=== PATIENT | female | born 1995 | race African-American/Black ===

== ENCOUNTER 2019-07-08 15:35 | Emergency (ER) | payer MEDICAID ==
[~2019-07-08] VITALS: Ht 170.2 cm; Wt 59.0 kg
[2019-07-08 15:45] VITALS: BP 113/59
--- NOTE | 2019-07-08 15:47 | NUR ---
ER Nurse Note: Pt walked in c/o abd pain with n/v since 07/07 PM. Pt stated she was drinking yesterday night, started vomiting ever since. Pt stated "I thought it was just a hangover but vomiting has not stopped". Pt stated emesis is clear now. Pt denies drinking more than her normal amount, denies taking drugs, denies being .
--- NOTE | 2019-07-08 15:52 | Emergency Room Report ---
History of Present Illness General Chief Complaint: Abdominal Pain Source: Patient Present Illness HPI 23-year-old female presents to the emergency department complaining of 10 out of 10 severity epigastric abdominal pain with associated vomiting since this a.m. Patient reports that she has vomited approximately 5 times she denies blood in the vomit and she denies constipation, diarrhea, hematochezia or black tarry stools. Patient reports she was drinking last night and she thought she had just a hangover however she continues to have nausea and vomiting. Patient states she is unable to keep anything down. She reports that her vomitus is the consistency of bile. She denies fevers, chills or suspicion of she states that she is currently on her menstrual cycle. She denies nominal tenderness. Except for during episodes of vomiting. She denies drug use. Allergies: Coded Allergies: No Known Allergies (Unverified , 07/08/19) Patient History Past Medical History: see triage record Past Surgical History: none Pertinent Family History: none Last Menstrual Period: 07/08/19 Now: No Immunizations: UTD Reviewed Nursing Documentation: PMH: Agreed; PSxH: Agreed Nursing Documentation-PMH Past Medical History: No Stated History Review of Systems All Other Systems: negative except mentioned in HPI Physical Exam Vital Signs Date Time Temp Pulse Resp B/P (MAP) Pulse Ox O2 Delivery O2 Flow Rate FiO2 07/08/19 15:38 98.4 62 19 113/59 (77) 97 Room Air Sp02 EP Interpretation: reviewed, normal General Appearance: no apparent distress, alert, GCS 15, non-toxic Head: normocephalic, atraumatic Eyes: bilateral eye normal inspection, bilateral eye PERRL ENT: hearing grossly normal, normal voice Neck: full range of motion Respiratory: lungs clear, normal breath sounds, speaking full sentences Cardiovascular #1: regular rate, rhythm Gastrointestinal: normal bowel sounds, soft, non-distended, no guarding, tenderness - epigastric Genitourinary: normal inspection, no CVA tenderness Musculoskeletal: gait/station normal, normal range of motion, non-tender Neurologic: alert, oriented x3, responsive, motor strength/tone normal, sensory intact, normal gait, speech normal, grossly normal Psychiatric: judgement/insight normal Medical Decision Making PA Attestation Dr. Puckett is my supervising Physician whom patient management has been discussed with. Diagnostic Impression: Primary Impression: Vomiting Qualified Codes: R11.10 - Vomiting, unspecified Additional Impression: Abdominal pain Qualified Codes: R10.13 - Epigastric pain ER Course 23-year-old female presents to the emergency department complaining of 10 out of 10 severity epigastric abdominal pain with associated vomiting since this a.m. Patient reports that she has vomited approximately 5 times she denies blood in the vomit and she denies constipation, diarrhea, hematochezia or black tarry stools. Patient reports she was drinking last night and she thought she had just a hangover however she continues to have nausea and vomiting. Patient states she is unable to keep anything down. She reports that her vomitus is the consistency of bile. She denies fevers, chills or suspicion of she states that she is currently on her menstrual cycle. She denies nominal tenderness. Except for during episodes of vomiting. She denies drug use. Ddx considered but are not limited to GE, colitis, acute appendicitis, SBO, H.pylori, Gastritis, PNA, pericarditis just to name a few. Vital signs: pt. is afebrile, H&PE are most consistent with Gastritis - no evidence to suggest acute abdomen on physical exam. ORDERS: -UA: WNL--most consistent with contamination. -Urine Hcg: Negative -UDS: Negative ED INTERVENTIONS: -Zofran PO -Pepcid PO -I do not identify an emergent condition at this time. With current presentation , pt. is stable for close outpatient follow up and conservative treatment. D/ w pt. to return promptly to ED with worsening or new symptoms.- Pt. (and or responsible green party) verbalizes' understanding and agreement with proposed treatment plan.proposed treatment plan. DISCHARGE: At this time pt. is stable for d/c to home. Will provide printed patient care instructions, and any necessary prescriptions. Care plan and follow up instructions have been discussed with the patient prior to discharge. Labs Test 07/08/19 17:55 Urine Color Pale yellow Urine Appearance Cloudy Urine pH 6 (4.5-8.0) Urine Specific [place] 1.015 (1.005-1.035) Urine Protein 1+ (NEGATIVE) Urine Glucose (UA) Negative (NEGATIVE) Urine Ketones 4+ (NEGATIVE) Urine Blood 5+ (NEGATIVE) Urine Nitrite Negative (NEGATIVE) Urine Bilirubin Negative (NEGATIVE) Urine Urobilinogen Normal MG/DL (0.0-1.0) Urine Leukocyte Esterase 2+ (NEGATIVE) Urine RBC 15-20 /HPF (0 - 2) Urine WBC 5-10 /HPF (0 - 2) Urine Squamous Epithelial Cells Moderate /LPF (NONE/OCC) Urine Bacteria Few /HPF (NONE) Urine HCG, Qualitative Negative (NEGATIVE) Urine Opiates Screen Negative (NEGATIVE) Urine Barbiturates Screen Negative (NEGATIVE) Phencyclidine (PCP) Screen Negative (NEGATIVE) Urine Amphetamines Screen Negative (NEGATIVE) Urine Benzodiazepines Screen Negative (NEGATIVE) Urine Cocaine Screen Negative (NEGATIVE) Urine Marijuana (THC) Screen Negative (NEGATIVE) Last Vital Signs Date Time Temp Pulse Resp B/P (MAP) Pulse Ox O2 Delivery O2 Flow Rate FiO2 07/08/19 15:45 62 19 Room Air 07/08/19 15:45 98.4 113/59 97 Disposition: HOME, SELF-CARE Condition: Stable Scripts Ranitidine Hcl* (ZANTAC*) 150 Mg Tablet 150 MG ORAL TWICE A DAY for 7 Days, #14 TAB Prov: Tania Alonzo 07/08/19 Ondansetron Odt* (ZOFRAN ODT*) 4 Mg Tab.rapdis 4 MG BC EVERY 8 HOURS PRN for Nausea & Vomiting, #10 TAB 0 Refills Prov: Tania Alonzo 07/08/19 Referrals: [facility] Patient Instructions: Gastritis, Adult Additional Instructions: Take medications as directed. Follow up with a Primary Care Provider in 3-5 days, even if your symptoms have resolved. --Please review list of primary care clinics, if you do not already have a primary care provider Return sooner to ED if new symptoms occur, or current symptoms become worse. - Please note that this Emergency Department Report was dictated using [employer] bending machine operator technology software, occasionally this can lead to erroneous entry secondary to interpretation by the dictation equipment. Tania Alonzo Jul 08, 2019 15:52
--- NOTE | 2019-07-08 16:05 | NUR ---
ER Nurse Note: Informed pt about needing a urine sample. Fluids being infused; IV established on RT AC. All safety measures met; will continue to montior.
--- NOTE | 2019-07-08 16:45 | NUR ---
ER Nurse Note: Pt attempted to provided urine, not successfull. Pt denies n/v. Fluids completed. Will continue to monitor.
--- NOTE | 2019-07-08 16:52 | NUR ---
ER Nurse Note: Provided pt with water; no signs of vomiting. Will continue to montior.
--- NOTE | 2019-07-08 18:07 | NUR ---
ER Nurse Note: Urine collected and sent to lab. Pt a&ox4, VSS, no signs of distress. Pt denies n/v, steady gait. Able to tolerate oral fluids. Will continue to montior.
[2019-07-08 18:19] LABS: APPEARANCE,URINE CLOUDY; BILIRUBIN, URINE NEGATIVE (NEGATIVE); COLOR,URINE PALE YELLOW; GLUCOSE, URINE (UA) NEGATIVE (NEGATIVE); KETONES,URINE 4+ (NEGATIVE); LEUKOCYTE ESTERASE ,URINE 2+ (NEGATIVE); NITRITE,URINE NEGATIVE (NEGATIVE); PH,URINE 6 (4.5-8.0); PROTEIN,URINE 1+ (NEGATIVE); UROBILINOGEN,URINE NORMAL MG/DL (0.0-1.0)
[2019-07-08] MEDS ORDERED: ONDANSETRON ODT4 MG BC (18:50)
[2019-07-08] MEDS ORDERED: ZANTAC150 MG ORAL (18:50)
[2019-07-08 18:55] VITALS: BP 120/62
--- NOTE | 2019-07-08 18:55 | NUR ---
ER Nurse Note: Patient seen, treated, medically cleared to be discharged per ERMD. Discharge instructions and prescriptons given with repeat verbalization by pt. Instructed pt to follow up with primary care physican within one week. Pt is aox4, on room air, with stable vital signs, denies n/v, pain. ID band removed. IV removed; site clean and bandaged. Pt ambulatory; left with all belongings.
== END 2019-07-08 18:55 | disposition home or self-care (01) ==
LOC: EMR 15:58
DX: R10.13 Epigastric pain (principal); R11.10 Vomiting, unspecified
CPT/HCPCS: 80307; 81001; 81025; 96361; 96374; J2405; Z7502; 99284

== ENCOUNTER 2019-08-27 21:51 | Emergency (ER) | payer SELFPAY ==
[~2019-08-27] VITALS: Ht 167.6 cm; Wt 56.7 kg
[~2019-08-27 21:51] MED LIST: ONDANSETRON ODT4 MG BC; ZANTAC150 MG ORAL
[2019-08-27 23:00] VITALS: BP 118/67
[2019-08-27] MEDS ORDERED: PROMETHAZINE-C118 M1 ORAL (23:29)
[2019-08-27] MEDS ORDERED: TAMIFLU75 MG ORAL (23:29)
[2019-08-27 23:45] VITALS: BP 118/67
--- NOTE | 2019-08-28 05:33 | Emergency Room Report ---
History of Present Illness General Chief Complaint: Upper Respiratory Illness Source: Patient Present Illness HPI 23-year-old female presents ED for evaluation. Complaining of runny nose, cough , congestion and body aches x1 week. Denies fevers or chills. Denies sick contacts or recent travel. No other aggravating relieving factors. Denies any other associated symptoms Allergies: Coded Allergies: No Known Allergies (Unverified , 07/08/19) Patient History Past Medical History: none Past Surgical History: none Pertinent Family History: none Social History: Denies: smoking, alcohol use, drug use Last Menstrual Period: 08/09/19 Now: No Immunizations: UTD Reviewed Nursing Documentation: PMH: Agreed; PSxH: Agreed Nursing Documentation-PMH Past Medical History: No Stated History Review of Systems All Other Systems: negative except mentioned in HPI Physical Exam Vital Signs Date Time Temp Pulse Resp B/P (MAP) Pulse Ox O2 Delivery O2 Flow Rate FiO2 08/27/19 22:45 98.1 76 18 118/67 (84) 99 Room Air Sp02 EP Interpretation: reviewed, normal General Appearance: no apparent distress, alert, GCS 15, non-toxic Head: normocephalic, atraumatic Eyes: bilateral eye normal inspection, bilateral eye PERRL ENT: hearing grossly normal, normal pharynx, no angioedema, normal voice Neck: full range of motion, supple/symm/no masses Respiratory: chest non-tender, lungs clear, normal breath sounds, speaking full sentences Cardiovascular #1: regular rate, rhythm, no edema Cardiovascular #2: 2+ carotid (R), 2+ carotid (L), 2+ radial (R), 2+ radial (L) , 2+ dorsalis pedis (R), 2+ dorsalis pedis (L) Gastrointestinal: normal bowel sounds, non tender, soft, non-distended, no guarding, no rebound Rectal: deferred Genitourinary: normal inspection, no CVA tenderness Musculoskeletal: back normal, normal range of motion, gait/station normal, non- tender Neurologic: alert, motor strength/tone normal, oriented x3, sensory intact, responsive, speech normal Psychiatric: judgement/insight normal, memory normal, mood/affect normal, no suicidal/homicidal ideation Reflexes: 3+ bicep (R), 3+ bicep (L), 3+ tricep (R), 3+ tricep (L), 3+ knee (R) , 3+ knee (L) Lymphatic: no adenopathy Medical Decision Making Diagnostic Impression: Primary Impression: Flu-like symptoms ER Course Hospital Course 23 yo F presents with bodyaches, cough x 1 week Differential diagnoses include: URI, pharyngitis, otitis media, influenza Clinical course Patient placed on stretcher. After initial history physical exam reveals a female in no acute distress. Bilateral TM unremarkable, no pharyngeal erythema. Lungs clear. No CVA tenderness. Clinical findings consistent with influenza. Given that I will treat her with Tamiflu safe for discharge for close outpatient follow-up. I will provide referrals Diagnosis - influenza-like symptoms Stable and discharged home with prescriptions for tamiflu, promethazine. drink plenty of fluids. Instructed to followup with PMD. Return to ED if symptoms recur or worsen Last Vital Signs Date Time Temp Pulse Resp B/P (MAP) Pulse Ox O2 Delivery O2 Flow Rate FiO2 08/27/19 23:45 98.1 76 18 118/67 99 Room Air Status: improved Disposition: HOME, SELF-CARE Condition: Stable Scripts Codeine/Promethazine Hcl* (PROMETHAZINE-CODEINE SYRUP*) 118 Ml Syrup 5 ML ORAL Q6H PRN for For Cough, #118 ML 0 Refills Prov: Herb Cedeno MD 08/27/19 Oseltamivir Phosphate (Tamiflu) 75 Mg Capsule 75 MG ORAL TWICE A DAY for 5 Days, CAP Prov: Herb Cedeno MD 08/27/19 Referrals: [facility] Patient Instructions: Influenza, Adult, [id number] Herb Cedeno MD Aug 28, 2019 05:33
== END 2019-08-27 23:45 | disposition home or self-care (01) ==
LOC: EMR 22:59
DX: R05 Cough (principal)
CPT/HCPCS: 99282

== ENCOUNTER 2020-07-15 14:27 | Emergency (ER) | payer MEDICAID ==
[~2020-07-15] VITALS: Ht 167.6 cm; Wt 61.2 kg
[~2020-07-15 14:27] MED LIST changes: +PROMETHAZINE-C118 M1 ORAL; +TAMIFLU75 MG ORAL
--- NOTE | 2020-07-15 15:04 | NUR ---
ED Nurse Note: Pt walked in today from home with a steady gait, her breathing is unlabored and she is showing no signs of distress. She has a swollen nodule under her right chin. she says that her pain is also located in her throat for 2 days. She had diffiulty talking during assesment dt pain and could mouth words to make needs known. She says louise she has difficulty swallowing dt the pain.
[2020-07-15] MEDS ORDERED: Lidocaine 1% MPF 10mg/ml 5ml INJ ONE (15:15)
[2020-07-15] MEDS ORDERED: Ketorolac 30mg Inj IM ONE (15:15)
--- NOTE | 2020-07-15 15:21 | Emergency Room Report ---
History of Present Illness General Chief Complaint: Sore Throat Source: Patient Present Illness HPI 24-year-old female with no signal past medical history here complaining of sudden onset of right sided tonsillar swelling and pain. Patient also feels a lump on right-sided neck. Denies any fever and chills, denies cough and congestion, shortness of breath, headache and dizziness. Denies diarrhea, denies . Has not taken medication for symptom relief. Allergies: Coded Allergies: No Known Allergies (Unverified , 07/08/19) COVID-19 Screening Contact w/high risk pt: No Experienced COVID-19 symptoms?: Yes COVID-19 Testing performed AIRPLANE AND ENGINE INSPECTOR: No Patient History Past Medical History: see triage record Past Surgical History: none Pertinent Family History: none Last Menstrual Period: 06/09 Now: No Immunizations: UTD Reviewed Nursing Documentation: PMH: Agreed; PSxH: Agreed Nursing Documentation-PM Past Medical History: No Stated History Review of Systems All Other Systems: negative except mentioned in HPI Physical Exam Vital Signs Date Time Temp Pulse Resp B/P (MAP) Pulse Ox O2 Delivery O2 Flow Rate FiO2 07/15/20 14:43 98.8 85 16 110/66 (81) 96 Room Air Sp02 EP Interpretation: reviewed, normal General Appearance: no apparent distress, alert, GCS 15, non-toxic Head: normocephalic, atraumatic Eyes: bilateral eye normal inspection, bilateral eye PERRL ENT: hearing grossly normal, no angioedema, normal voice, tonsillar swelling, tonsillar exudate Neck: full range of motion, supple/symm/no masses, other - Right-sided anterior cervical lymphadenopathy Respiratory: chest non-tender, lungs clear, normal breath sounds, speaking full sentences Cardiovascular #1: regular rate, rhythm, no edema Cardiovascular #2: 2+ carotid (R), 2+ carotid (L), 2+ radial (R), 2+ radial (L), 2+ dorsalis pedis (R), 2+ dorsalis pedis (L) Gastrointestinal: normal bowel sounds, non tender, soft, non-distended, no guarding, no rebound Rectal: deferred Musculoskeletal: back normal Neurologic: alert, motor strength/tone normal, oriented x3, sensory intact, responsive, speech normal Psychiatric: judgement/insight normal, memory normal, mood/affect normal, no suicidal/homicidal ideation Skin: no rash Lymphatic: adenopathy - Right-sided anterior cervical lymphadenopathy Medical Decision Making PA Attestation All diagnoses and treatment plans were reviewed and discussed with my supervising physician Dr. Cedeno Diagnostic Impression: Primary Impression: Tonsillar abscess ER Course 24-year-old female with no signal past medical history here complaining of sudden onset of right sided tonsillar swelling and pain. Patient also feels a lump on right-sided neck. Denies any fever and chills, denies cough and congestion, shortness of breath, headache and dizziness. Denies diarrhea, denies . Has not taken medication for symptom relief. Ddx considered but are not limited to: strep pharyngitis, URI, tonsillitis, peritonsillar abscess, influneza Vital signs: are WNL, pt. is afebrile H&PE are most consistent with: Tonsillitis with exudate/abscess ORDERS: Augmentin, prednisone, ibuprofen, lidocaine viscous ED INTERVENTIONS: Toradol, dexamethasone, ceftriaxone DISCHARGE: At this time pt. is stable for d/c to home. Will provide printed patient care instructions, and any necessary prescriptions. Care plan and follow up instructions have been discussed with the patient prior to discharge. Advised patient to follow-up with ENT, at this time I do not suspect peritonsillar abscess as there is visible exudate and front of right tonsil possibility of tonsillar abscess however I do not palpate any abscess posteriorly. If worsening symptoms return to the emergency room for imaging and further evaluation Last Vital Signs Date Time Temp Pulse Resp B/P (MAP) Pulse Ox O2 Delivery O2 Flow Rate FiO2 07/15/20 14:43 98.8 85 16 110/66 (81) 96 Room Air Disposition: HOME, SELF-CARE Condition: Stable Scripts Lidocaine HCl 2% Viscous (Lidocaine HCl 2% Viscous) 100 Ml Solution 15 ML ORAL QID PRN for tid, #120 ML Prov: Karlo Hansen 07/15/20 Prednisone* (PREDNISONE*) 20 Mg Tablet 40 MG ORAL DAILY for 5 Days, #10 TAB Prov: Karlo Hansen 07/15/20 Ibuprofen* (MOTRIN*) 600 Mg Tablet 600 MG ORAL Q6H PRN for For Pain, #30 TAB 0 Refills Prov: Karlo Hansen 07/15/20 Amoxicillin/Potassium Clav 875-125* (AUGMENTIN 875-125 TABLET*) 1 Each Tablet 1 TAB ORAL TWICE A DAY for 10 Days, #20 TAB Prov: Karlo Hansen 07/15/20 Patient Instructions: Tonsillitis, [id number] Additional Instructions: Take medication as directed, follow primary care provider for referral to ENT, if worsening symptoms return to the emergency room Karlo Hansen Jul 15, 2020 15:21
[2020-07-15] MEDS ORDERED: IBUPROFEN600 M1 ORAL (15:22)
[2020-07-15] MEDS ORDERED: PREDNISONE20 MG ORAL (15:22)
[2020-07-15] MEDS ORDERED: AUGMENTIN 875-1 EAC1 ORAL (15:22)
[2020-07-15] MEDS ORDERED: LIDOCAINE VISC100 ML ORAL (15:47)
--- NOTE | 2020-07-15 15:50 | NUR ---
ER DISCHARGE NOTE: Patient is cleared to be discharged per ERMD, pt is aox4, on room air, with stable vital signs. pt was given dc and prescription instructions, pt was able to verbalize understanding, pt id band removed without complications. pt is able to ambulate with steady gait. pt took all belongings.
[2020-07-15 15:51] VITALS: BP 112/70
[2020-07-15 15:55] VITALS: BP 114/82
== END 2020-07-15 15:55 | disposition home or self-care (01) ==
LOC: EMR 14:35
DX: J36 Peritonsillar abscess (principal)
CPT/HCPCS: 96372; J0696; J1100; J1885; Z7502; 99283